=== PATIENT | male | born 1945 | race Caucasian/White ===

== ENCOUNTER 2019-03-15 08:40 | Emergency (ER) | payer MEDICARE, OTHER, SELFPAY ==
[2019-03-15 08:49] VITALS: BP 157/91; PULSE 96; RESP 18; TEMP 36.8; O2SAT 96; BMI 32.5
--- NOTE | 2019-03-15 09:39 | ED.EXTPRO ---
HPI - Extremity Problem General Chief complaint: Extremity Problem,Nontraumatic Stated complaint: infection on left elbow Time Seen by Provider: 03/15/19 09:32 Source: patient Mode of arrival: Ambulatory Limitations: no limitations History of Present Illness HPI Narrative: Patient is a 73-year-old male who presents with swelling in his left elbow. It has been there for about 3 days. He was seen evaluated 2 days ago started on Keflex. His states that the redness has gotten significantly all worse. He has had overall just not feeling great. He has a previous history of a staph and his right elbow was significantly infected about a year ago he needed IV antibiotics but did not require hospitalization. It needed to be drained as well. He denies any repetitive injury, he is right handed. They are currently on vacation. He does garden quite actively but has not done that for a number of weeks. Related Data Previous Rx's Medication Instructions Recorded sulfamethoxazole-trimethoprim 1 tab PO BID 7 Days #14 tab 03/15/19 [Bactrim DS] Allergies Allergy/AdvReac Type Severity Reaction Status Date / Time No Known Drug Allergies Allergy Verified 03/15/19 08:49 Review of Systems Review of Systems Narrative: GENERAL: Denies chills, fatigue, malaise, fever, sweats, travel HEENT: Denies sinus pain, ear pain, sore throat, difficulty swallowing, neck pain RESPIRATORY: Denies dyspnea, cough, wheezing, hemoptysis, sputum. CARDIOVASCULAR: Denies chest pain, palpitations, orthopnea, edema GASTROINTESTINAL: Denies nausea, vomiting, abdominal pain, diarrhea, constipation, melena. : Denies dysuria, frequency, incontinence, hematuria, urinary retention, flank pain. MUSCULOSKELETAL: Left elbow swelling SKIN: See HPI NEUROLOGIC: Denies weakness, dizziness, headache, numbness, change in speech, confusion PSYCHIATRIC: No concerning psychosocial issues. 12 point review of systems is negative except for those stated above and HPI PFSH Medical History Chronic back pain (Acute) Social History Smoking Status: Never smoker Social History Smoking Status: Never smoker Exam Initial Vital Signs Initial Vital Signs: Vital Signs Temperature 98.2 F 03/15/19 08:49 Pulse Rate 96 H 03/15/19 08:49 Respiratory Rate 18 03/15/19 08:49 Blood Pressure 157/91 H 03/15/19 08:49 Pulse Oximetry 96 03/15/19 08:49 GENERAL: Well-appearing, well-nourished and in no acute distress. CARDIOVASCULAR: peripheral pulses in tact, cap refill <2 sec RESPIRATORY: No respiratory distress, speaks in full sentences without difficulty [ABDOMEN: Soft, nontender, no guarding or rebound] EXTREMITIES: Normal range of motion, no clubbing or edema. Neurovascularly intact Left elbow bursitis like noted. Small. Patient is able to flex and extend elbow easily. He has very minimal erythema down the forearm. No streaking up the arm. NEUROLOGICAL: Cranial nerves II through XII grossly intact. Normal gait and speech. SKIN: Minimal erythema no fluctuation no gross pus he does have a small scratch on the olecranon. Mild fluid bursa. Course Vital Signs Vital signs: Vital Signs - 8 hr 03/15/19 10:24 Pulse Rate [Left Radial] 78 MDM - Extremity (Nontraumatic) MDM Narrative Medical decision making narrative: Patient is very minimal erythema on his elbow. No joint easily. I actually suspect more of a probable bursitis rather than cellulitis. However this is help patient's infections started last time. Will change him to Bactrim to cover for MRSA. At this time no further workup is indicated I discussed all findings with the patient and , Education has been performed regarding treatment plan, diagnosis, warning signs and symptoms and all concerns have been addressed. Verbally agree with and understood all of the above. Discharge Plan Departure Patient Disposition: Home Clinical Impression: Cellulitis of left elbow Discharge Date/Time: 03/15/19 10:27 Instructions: DI for Cellulitis -- Adult, DI for Elbow Bursitis Activity Restrictions/Additional Instructions: *You have been diagnosed with cellulitis of left elbow *What to do: Possible bursitis as well. Recommend ice and elevation *Continue to take medications as directed Bactrim 1 tablet twice a day for 7 days Stop taking Keflex *Follow up with your primary care provider in 2-3 days *Return to ER if you should have significant worsening of redness fevers streaking up the arm inability to bend or move elbow or any new, worsening or concerning symptoms Prescriptions: New sulfamethoxazole-trimethoprim [Bactrim DS] 800-160 mg tablet 1 tab PO BID 7 Days Qty: 14 RF: 0
[2019-03-15 10:07] VITALS: BP 122/91; PULSE 86; RESP 14; O2SAT 94
[2019-03-15 10:24] VITALS: PULSE 78
== END 2019-03-15 10:27 | disposition home or self-care (01) ==
PROVIDERS: Emergency Provider Emergency Medicine
DX: L03.113 Cellulitis of right upper limb (principal)
CPT/HCPCS: 99282